=== PATIENT | female | born 1990 | race Caucasian/White ===

== ENCOUNTER 2020-10-04 16:50 | Emergency (ER) | payer MEDICAID, OTHER ==
[2020-10-04] MEDS ORDERED: Bupivacaine 0.5% 10 ML SDV INJECT ONE (18:08)
--- NOTE | 2020-10-04 18:49 | CR ---
Indication: Laceration of the 3rd digit Technique: Three views left hand Comparison: None Findings: Bones: Alignment is normal. No fractures or bone lesions. Joint spaces: Unremarkable. Soft tissues: Unremarkable. No radiopaque foreign body. Impression: Negative. Dictated by Ora Montano MD @ Oct 04 2020 6:46PM Signed by Dr. Ora Montano @ Oct 04 2020 6:48PM
--- NOTE | 2020-10-04 19:33 | EDM.PDOC ---
ED HPI GENERAL MEDICAL PROBLEM - General Chief Complaint: Laceration Stated Complaint: CUT OFF TIP OF FINGER Time Seen by Provider: 10/04/20 17:07 Source of Information: Reports: Patient History Limitations: Reports: No Limitations - History of Present Illness INITIAL COMMENTS - FREE TEXT/NARRATIVE: HISTORY AND PHYSICAL: History of present illness: She is a 29-year-old female who presents to the emergency room today with concern of left hand ring finger injury that occurred just prior to arrival to the ED. Patient states that she was using a slicer for meats and vegetables. Patient states that generally you are supposed to use it will so that when you get to the end you do not sliced her finger. Patient states that she got too comfortable and did not use the tool and sliced off the tip of her left hand ring finger. Patient states that she immediately wrapped up the finger and came to the emergency room. Patient states that she is up-to-date on her vaccinations, including tetanus which she states was just updated this past year. Patient has fully been able to move finger without concern. Patient denies fever, chills, chest pain, shortness of breath, or cough. Denies headache, neck stiff ness, change in vision, syncope, or near syncope. Denies nausea, vomiting, abdominal pain, diarrhea, constipation, or dysuria. Has not noted any blood in urine or stool. Patient has been eating and drinking appropriately. Review of systems: As per history of present illness and below otherwise all systems reviewed and negative. Past medical history: As per history of present illness and as reviewed below otherwise noncontributory. Surgical history: As per history of present illness and as reviewed below otherwise noncontributory. Social history: See social history for further information Family history: As per history of present illness and as reviewed below otherwise noncontributory. Physical exam: General: Patient is alert, oriented, and in no acute distress. Patient sitting comfortably on exam table. HEENT: Atraumatic, normocephalic, pupils equal and reactive bilaterally, negative for conjunctival pallor or scleral icterus, mucous membranes moist, TMs normal bilaterally, throat clear, neck supple, nontender, trachea midline. No drooling or trismus noted. No meningeal signs. No hot potato voice noted. Lungs: Clear to auscultation, breath sounds equal bilaterally, chest nontender. Heart: S1S2, regular rate and rhythm without overt murmur Abdomen: Soft, nondistended, nontender. Negative for masses or hepatosplenomegaly. Negative for costovertebral tenderness. Pelvis: Stable nontender. Genitourinary: Deferred. Rectal: Deferred. Skin: Intact, warm, dry. No lesions or rashes noted. Extremities: Patients left hand, distal 4th digit finger pad is avulsed without exposed bone; mild bleeding. There is no sign of tendon involvement. Patient has full ROM of the digit and remaining digits / wrist of the LUE. Radial pulse is grossly intact with cap refill < 2 seconds. Otherwise, atraumatic, negative for cords or calf pain. Neurovascular unremarkable. Neuro: Awake, alert, oriented. Cranial nerves II through XII unremarkable. Cerebellum unremarkable. Motor and sensory unremarkable throughout. Exam nonfocal. Notes: I did call and speak to Dr. Gallardo, orthopedics on-call, and thoroughly discussed patient's case. He states that patient is able to follow-up with him in the clinic. Signs and symptoms that would prompt return to the ED thoroughly discussed with patient. Discussed importance for follow-up with orthopedic provider. Voices understanding and is agreeable to plan of care. Denies any further questions or concerns at this time. Diagnostics: Hand XR Therapeutics: SurgiSeal sterile dressing placed by nursing staff, digital block Prescription: None Impression: Finger pad avulsion, left, 4th digit Plan: 1. Rest, ice, elevate the affected extremity. You can apply ice 15 minutes on, 15 minutes off. Keep dressing on for the next 24 hours as discussed. 2. Tylenol and/or Ibuprofen as directed for pain management or discomfort. 3. Follow up with the Orthopedic provider as discussed. Return to the ED as needed and as discussed. Definitive disposition and diagnosis as appropriate pending reevaluation and review of above. - Related Data Allergies Allergy/AdvReac Type Severity Reaction Status Date / Time No Known Allergies Allergy Verified 10/04/20 17:28 Home Meds: Home Meds cephALEXin [Keflex] 500 mg PO BID 7 Days #14 cap 10/04/20 [Rx] Past Medical History - Past Health History Medical/Surgical History: Denies Medical/Surgical History HEENT History: Reports: None Cardiovascular History: Reports: None Respiratory History: Reports: None Gastrointestinal History: Reports: None Genitourinary History: Reports: None THERAPIST RADIATION History: Reports: None Musculoskeletal History: Reports: None Neurological History: Reports: None Psychiatric History: Reports: None Endocrine/Metabolic History: Reports: None Hematologic History: Reports: None Immunologic History: Reports: None Oncologic (Cancer) History: Reports: None Dermatologic History: Reports: None - Infectious Disease History Infectious Disease History: Reports: None - Past Surgical History Head Surgeries/Procedures: Reports: None HEENT Surgical History: Reports: Adenoidectomy, Myringotomy w Tube(s), Tonsillectomy Cardiovascular Surgical History: Reports: None Respiratory Surgical History: Reports: None GI Surgical History: Reports: None Female Surgical History: Reports: None Endocrine Surgical History: Reports: None Neurological Surgical History: Reports: None Musculoskeletal Surgical History: Reports: None Oncologic Surgical History: Reports: None Dermatological Surgical History: Reports: None Social & Family History - Family History Family Medical History: No Pertinent Family History - Tobacco Use Tobacco Use Status *Q: Current Every Day Tobacco User Years of Tobacco use: 14 Packs/Tins Daily: 0.5 - Caffeine Use Caffeine Use: Reports: None - Recreational Drug Use Recreational Drug Use: No ED ROS GENERAL - Review of Systems Review Of Systems: Comprehensive ROS is negative, except as noted in HPI. ED EXAM, SKIN/RASH Exam: See Below (see dictation) Course - Vital Signs Last Recorded V/S: Last Vital Signs Temp 97.3 F 10/04/20 20:00 Pulse 78 10/04/20 20:00 Resp 18 10/04/20 20:00 BP 111/64 10/04/20 20:00 Pulse Ox 98 10/04/20 20:00 - Orders/Labs/Meds Meds: Medications Discontinued Medications Generic Name Dose Route Start Last Admin Trade Name Rupinder PRN Reason Stop Dose Admin Bupivacaine HCl 10 ml 10/04/20 18:08 10/04/20 18:54 Sensorcaine-Mpf 0.5% INJECT 10/04/20 18:09 10 ml ONETIME ONE Administration Lidocaine HCl 5 ml 10/04/20 18:08 10/04/20 18:54 Xylocaine-Mpf 1% INJECT 10/04/20 18:09 5 ml ONETIME ONE Administration Departure - Departure Time of Disposition: 19:30 Disposition: Home, Self-Care 01 Clinical Impression: Finger injury Qualifiers: Encounter type: initial encounter Laterality: left Qualified Code(s): S69.92XA - Unspecified injury of left wrist, hand and finger(s), initial encounter - Discharge Information Prescriptions: cephALEXin [Keflex] 500 mg PO BID 7 Days #14 cap Instructions: Scapholunate Dissociation, Extensor Carpi Ulnaris Tendon Instability Referrals: PCP,None [Primary Care Provider] - Forms: ED Department Discharge Additional Instructions: The following information is given to patients seen in the emergency department who are being discharged to home. This information is to outline your options for follow-up care. We provide all patients seen in our emergency department with a follow-up referral. The need for follow-up, as well as the timing and circumstances, are variable depending upon the specifics of your emergency department visit. If you don't have a primary care physician on staff, we will provide you with a referral. We always advise you to contact your personal physician following an emergency department visit to inform them of the circumstance of the visit and for follow-up with them and/or the need for any referrals to a consulting specialist. The emergency department will also refer you to a specialist when appropriate. This referral assures that you have the opportunity for follow-up care with a specialist. All of these measure are taken in an effort to provide you with optimal care, which includes your follow-up. Under all circumstances we always encourage you to contact your private physician who remains a resource for coordinating your care. When calling for follow-up care, please make the office aware that this follow-up is from your recent emergency room visit. If for any reason you are refused follow-up, please contact the [facility] Emergency Department at and asked to speak to the emergency department charge nurse. [facility] [address] [place] [id number] [address] [facility], Dr. Gallardo [facility] Professional [facility] [address] [place] [address], [address] [place] [address] 1. Rest, ice, elevate the affected extremity. You can apply ice 15 minutes on, 15 minutes off. Keep dressing on for the next 24 hours as discussed. 2. Tylenol and/or Ibuprofen as directed for pain management or discomfort. 3. Follow up with the Orthopedic provider as discussed. Return to the ED as needed and as discussed. Sepsis Event Note (ED) - Evaluation Sepsis Screening Result: No Definite Risk
[2020-10-04 22:35] VITALS: BP 111/64; PULSE 78
== END 2020-10-04 20:00 | disposition home or self-care (01) ==
LOC: MW.ED 16:50
DX: S61.205A Unspecified open wound of left ring finger without damage to nail, initial encounter (principal); F17.210 Nicotine dependence, cigarettes, uncomplicated; W26.8XXA Contact with other sharp object(s), not elsewhere classified, initial encounter
CPT/HCPCS: 64450; 73130; 99283; J2001; J3490

== ENCOUNTER 2022-02-10 19:23 | Emergency (ER) | payer MEDICAID ==
[2022-02-10 21:17] LABS: BLOOD UREA NITROGEN,BUN 11 mg/dL (7.0-18.0); CARBON DIOXIDE,CO2 27.5 mmol/L (21.0-32.0); CHLORIDE,CL 104 mmol/L (98-107); GLUCOSE RANDOM 96 mg/dL (74-106); SODIUM,NA 140 mmol/L (136-145)
[2022-02-10 23:00] VITALS: BP 118/78; PULSE 72
== END 2022-02-10 23:00 | disposition home or self-care (01) ==
LOC: MW.ED 19:23
DX: O20.9 Hemorrhage in early pregnancy, unspecified (principal); Z3A.01 Less than 8 weeks gestation of pregnancy; Z79.899 Other long term (current) drug therapy
CPT/HCPCS: 36415; 76801; 76801-26; 80053; 81001; 84702; 85025; 86900; 86901; 99284-25

== ENCOUNTER 2023-01-29 08:01 | Day surgery (SDC) | payer MEDICAID ==
[~2023-01-29 08:01] MED LIST: Albuterol 0.083% 2.5 MG/3 ML Neb Soln NEB PRN; HYDROmorphone 1 MG/ML Syringe IVPUSH PRN; Lactated Ringers 1,000 ML IV SCH; Metoclopramide 10 MG/2 ML SDV IVPUSH PRN; Morphine 2 MG/ML SYRINGE IVPUSH PRN; Naloxone 0.4 MG/ML SDV IVPUSH PRN; Ondansetron 4 MG/2 ML SDV IVPUSH PRN; droPERidol 5 MG/2 ML SDV IVPUSH PRN; fentaNYL 50 MCG/ML SDV IVPUSH PRN
[2023-01-29] MEDS ORDERED: propofoL 50 ML ONE (09:49)
[2023-01-29] MEDS ORDERED: Propofol 200 MG/20 ML SDV ONE (09:49)
[2023-01-29] MEDS ORDERED: fentaNYL 100 MCG/2 ML SDV ONE (09:50)
[2023-01-29] MEDS ORDERED: Lidocaine 1% with EPINEPHrine 1:100,000 10 ML MDV ONE (10:08)
[2023-01-29] MEDS ORDERED: Ferric Subsulfate Topical Soln 8 GM (8 ML) Bottle ONE (10:08)
[2023-01-29] MEDS ORDERED: Iodine/Potassium Iodide 5% Solution 14 ML Bottle ONE (10:08)
[2023-01-29 10:33] LABS: CARBON DIOXIDE,CO2 26.6 mmol/L (21.0-32.0); POTASSIUM,K 4.4 mmol/L (3.5-5.1)
[2023-01-29] MEDS ORDERED: Dexamethasone 4 MG/ML 5 ML MDV ONE (10:52)
[2023-01-29] MEDS ORDERED: Ondansetron 4 MG/2 ML SDV ONE (10:52)
[2023-01-29] MEDS ORDERED: Ketorolac 30 MG/ML SDV ONE (10:52)
[2023-01-29 12:16] VITALS: BP 105/57; PULSE 62
== END 2023-01-29 11:42 | disposition home or self-care (01) ==
LOC: MW.SDS 08:01
PROVIDERS: ATTEND Obstetrics & Gynecology
DX: D06.9 Carcinoma in situ of cervix, unspecified (principal); R87.810 Cervical high risk human papillomavirus (HPV) DNA test positive; F41.9 Anxiety disorder, unspecified; F17.290 Nicotine dependence, other tobacco product, uncomplicated; Z90.89 Acquired absence of other organs; Z79.899 Other long term (current) drug therapy
CPT/HCPCS: 36415; 57461; 80053; 81025; 85027; A9270; J0131; J1100; J1885; J2405; J2704; J3010; J7120; 00940; J3490

== ENCOUNTER 2023-07-25 20:27 | Emergency (ER) | payer MEDICAID ==
[2023-07-25 23:06] VITALS: BP 119/54; PULSE 63
== END 2023-07-25 23:06 | disposition home or self-care (01) ==
LOC: MW.ED 20:27
DX: O20.0 Threatened abortion (principal); Z88.8 Allergy status to other drugs, medicaments and biological substances; Z79.899 Other long term (current) drug therapy
CPT/HCPCS: 76817; 76817-26; 99282; 99284

== ENCOUNTER 2023-12-31 11:27 | Emergency (ER) | payer BC ==
[2023-12-31 11:46] VITALS: BP 151/94; PULSE 130
[2023-12-31] MEDS: LORazepam 1 MG Tab PO ONE (12:00)
[2023-12-31 12:16] LABS: BASOPHILS ABSOLUTE AUTO 0.03 K/uL (0.00-0.20); BASOPHILS PERCENT AUTO 0.5 % (0.0-1.0); EOSINOPHILS ABSOLUTE AUTO 0.04 K/uL (0.00-0.45); EOSINOPHILS PERCENT AUTO 0.7 % (0.0-6.0); HEMATOCRIT 42.8 % (37.0-47.0); HEMOGLOBIN 14.3 g/dL (12.0-16.0); IMMATURE GRAN ABSOLUTE AUTO 0.01 K/uL (0.00-0.05); IMMATURE GRAN PERCENT AUTO 0.2 % (0.0-0.4); LYMPHOCYTES ABSOLUTE AUTO 1.77 K/uL (1.00-4.80); LYMPHOCYTES PERCENT AUTO 31.9 % (24.0-44.0); MEAN CORPUSCULAR HEMOGLOBIN 30.4 pg (28.0-32.0); MEAN CORPUSCULAR HGB CONC 33.4 g/dL (32.0-36.0); MEAN CORPUSCULAR VOLUME 90.9 fL (83.0-99.0); MEAN PLATELET VOLUME 9.8 fL (9.4-12.3); MONOCYTES ABSOLUTE AUTO 0.45 K/uL (0.00-0.80); MONOCYTES PERCENT AUTO 8.1 % (0.0-8.0); NEUTROPHILS ABSOLUTE AUTO 3.24 K/uL (1.80-7.70); NEUTROPHILS PERCENT AUTO 58.6 % (41.0-71.0); PLATELET COUNT,PLT 337 K/uL (150-400); RED BLOOD CELL COUNT 4.71 M/uL (4.10-5.30); WHITE BLOOD CELL COUNT,WBC 5.54 K/uL (3.9-11.3)
[2023-12-31 12:59] LABS: APPEARANCE,URINE CLEAR; BILIRUBIN,URINE NEGATIVE (NEGATIVE); COLOR,URINE YELLOW; GLUCOSE,URINE NEGATIVE (NEGATIVE); KETONES,URINE NEGATIVE (NEGATIVE); LEUKOCYTE ESTERASE,URINE NEGATIVE (NEGATIVE); NITRITE,URINE NEGATIVE (NEGATIVE); OCCULT BLOOD,URINE NEGATIVE (NEGATIVE); PROTEIN,URINE NEGATIVE (NEGATIVE); UROBILINOGEN,URINE 0.2 EU/dL (<2.0)
[2023-12-31 13:09] LABS: AMPHETAMINES SCREEN, URINE NEGATIVE (CUTOFF=500); BARBITURATE SCREEN,URINE NEGATIVE (CUTOFF=200); BENZODIAZEPINES SCREEN,URINE PRESUMPTIVE POSITIVE (CUTOFF=150); BUPRENORPHINE SCREEN,URINE NEGATIVE (CUTOFF=10); METHADONE SCREEN, URINE NEGATIVE (CUTOFF=200); METHAMPHETAMINES SCREEN, URINE NEGATIVE (CUTOFF=500); OXYCODONE SCREEN,URINE NEGATIVE (CUT0FF=100); PCP SCREEN,URINE NEGATIVE (CUTOFF=25); THC SCREEN,URINE 20 NG/ML NEGATIVE (CUTOFF=50)
[2023-12-31 13:12] LABS: ALANINE AMINOTRANSFERASE,ALT 25 IU/L (14-63); ALBUMIN 3.8 g/dL (3.4-5.0); ALKALINE PHOSPHATASE 61 U/L (46-116); ASPARTATE AMNIOTRANSFERASE,AST 15 IU/L (15-37); BILIRUBIN TOTAL 0.4 mg/dL (0.2-1.0); BLOOD UREA NITROGEN,BUN 9 mg/dL (7.0-18.0); CARBON DIOXIDE,CO2 25.3 mmol/L (21.0-32.0); CHLORIDE,CL 106 mmol/L (98-107); CREATININE 0.8 mg/dL (0.6-1.0); EST CRCL DRUG DOSING (CG) 92.76 mL/min; ESTIMATED GFR 99 mL/min (>60); ETHANOL BLOOD MEDICAL <3 mg/dL; GLUCOSE RANDOM 101 mg/dL (74-106); PROTEIN TOTAL,TP 7.7 g/dL (6.4-8.2); SODIUM,NA 143 mmol/L (136-145); TSH ULTRASENSITIVE 1.42 uIU/mL (0.36-3.74)
== END 2023-12-31 13:39 | disposition home or self-care (01) ==
LOC: MW.ED 11:27
DX: F32.A Depression, unspecified (principal); F42.8 Other obsessive-compulsive disorder; Z75.8 Other problems related to medical facilities and other health care; Z88.8 Allergy status to other drugs, medicaments and biological substances
CPT/HCPCS: 36415; 80053; 80305; 80307; 81003; 81025; 82306; 82607; 84443; 85025; 99284; A9270; 99283

== ENCOUNTER 2024-01-13 23:16 | Emergency (ER) | payer BC ==
[2024-01-14 00:27] LABS: BASOPHILS ABSOLUTE AUTO 0.04 K/uL (0.00-0.20); BASOPHILS PERCENT AUTO 0.4 % (0.0-1.0); EOSINOPHILS ABSOLUTE AUTO 0.04 K/uL (0.00-0.45); EOSINOPHILS PERCENT AUTO 0.4 % (0.0-6.0); HEMATOCRIT 40.4 % (37.0-47.0); HEMOGLOBIN 13.8 g/dL (12.0-16.0); IMMATURE GRAN ABSOLUTE AUTO 0.01 K/uL (0.00-0.05); IMMATURE GRAN PERCENT AUTO 0.1 % (0.0-0.4); LYMPHOCYTES ABSOLUTE AUTO 1.94 K/uL (1.00-4.80); LYMPHOCYTES PERCENT AUTO 21.7 % (24.0-44.0); MEAN CORPUSCULAR HEMOGLOBIN 30.7 pg (28.0-32.0); MEAN CORPUSCULAR HGB CONC 34.2 g/dL (32.0-36.0); MEAN CORPUSCULAR VOLUME 89.8 fL (83.0-99.0); MONOCYTES ABSOLUTE AUTO 0.71 K/uL (0.00-0.80); MONOCYTES PERCENT AUTO 7.9 % (0.0-8.0); NEUTROPHILS ABSOLUTE AUTO 6.22 K/uL (1.80-7.70); NEUTROPHILS PERCENT AUTO 69.5 % (41.0-71.0); PLATELET COUNT,PLT 302 K/uL (150-400); WHITE BLOOD CELL COUNT,WBC 8.96 K/uL (3.9-11.3)
[2024-01-14 00:56] LABS: ACETAMINOPHEN <2.0 ug/mL; ALANINE AMINOTRANSFERASE,ALT 22 IU/L (14-63); ALBUMIN 3.7 g/dL (3.4-5.0); ALKALINE PHOSPHATASE 73 U/L (46-116); ASPARTATE AMNIOTRANSFERASE,AST 14 IU/L (15-37); BILIRUBIN TOTAL 0.2 mg/dL (0.2-1.0); BLOOD UREA NITROGEN,BUN 12 mg/dL (7.0-18.0); CALCIUM 9.3 mg/dL (8.5-10.1); CARBON DIOXIDE,CO2 27.8 mmol/L (21.0-32.0); CHLORIDE,CL 102 mmol/L (98-107); CREATININE 0.9 mg/dL (0.6-1.0); EST CRCL DRUG DOSING (CG) 82.45 mL/min; ETHANOL BLOOD MEDICAL <3 mg/dL; GLUCOSE RANDOM 123 mg/dL (74-106); POTASSIUM,K 4.1 mmol/L (3.5-5.1); PROTEIN TOTAL,TP 7.5 g/dL (6.4-8.2); SALICYLATE 0.7 mg/dL (0.0-20.0); SODIUM,NA 136 mmol/L (136-145); TSH ULTRASENSITIVE 3.04 uIU/mL (0.36-3.74)
[2024-01-14 01:03] LABS: ESTIMATED GFR 86 mL/min (>60)
[2024-01-14] MEDS: Magnesium Sulfate/Water 2 GM in Premix Bag 1 BAG IV ONE (01:04)
[2024-01-14] MEDS: Sodium Chloride 0.9% 2.5 ML Syringe FLUSH PRN (01:05)
[2024-01-14] MEDS: Midazolam 1 MG/ML 2 ML SDV IVPUSH ONE (01:05)
[2024-01-14] MEDS: Sodium Chloride 0.9% 10 ML Syringe FLUSH PRN (01:05)
[2024-01-14 01:40] LABS: AMPHETAMINES SCREEN, URINE NEGATIVE (CUTOFF=500); BARBITURATE SCREEN,URINE NEGATIVE (CUTOFF=200); BENZODIAZEPINES SCREEN,URINE NEGATIVE (CUTOFF=150); BUPRENORPHINE SCREEN,URINE NEGATIVE (CUTOFF=10); METHADONE SCREEN, URINE NEGATIVE (CUTOFF=200); METHAMPHETAMINES SCREEN, URINE NEGATIVE (CUTOFF=500); OXYCODONE SCREEN,URINE NEGATIVE (CUT0FF=100); PCP SCREEN,URINE NEGATIVE (CUTOFF=25); THC SCREEN,URINE 20 NG/ML NEGATIVE (CUTOFF=50)
[2024-01-14 03:45] VITALS: BP 116/69; PULSE 97
== END 2024-01-14 03:36 | disposition home or self-care (01) ==
LOC: MW.ED 23:16
DX: F13.20 Sedative, hypnotic or anxiolytic dependence, uncomplicated (principal); R45.851 Suicidal ideations; Z88.8 Allergy status to other drugs, medicaments and biological substances; Z79.899 Other long term (current) drug therapy
CPT/HCPCS: 36415; 80053; 80143; 80179; 80305; 80307; 83735; 84443; 84484; 84703; 85025; 93005; 96365; 96375; 99285; J2250; J3475; J3490; 93010